=== PATIENT | female | born 2000 | race Caucasian/White ===

== ENCOUNTER 2020-08-01 15:18 | Emergency (ER) | payer BC, OTHER ==
--- NOTE | 2020-08-01 15:30 | ED Cardiac General ---
History of Present Illness General Chief Complaint: Chest Pain Stated Complaint: CHEST PAIN,SOB Source: patient Exam Limitations: no limitations History of Present Illness Date Seen by Provider: Aug 01, 2020 Time Seen by Provider: 15:27 Initial Comments 19-year-old female presents with "chest pain" and shortness of breath. Patient reports she's had slight palpitations or issues with her heart for a long time. That her family thinks she has anxiety. She reports that her symptoms started around 12 or 12:30. She denies any cough, fever, nausea, vomiting, underlying lung disease, smoking or other systemic complaints. She reports she has severe acid reflux that takes omeprazole for the doesn't help. Patient reports that because she thinks she has heart problem she wanted to come in and have it checked out. pt reports she has recently wore a holter monitor due to palpitations but does not have the results Allergies and Home Medications Allergies Coded Allergies: amoxicillin (Verified Allergy, Unknown, rash, 08/01/20) Patient Home Medication List Home Medication List Reviewed: Yes Review of Systems Review of Systems Constitutional: No chills, No fever, No weakness EENTM: No Symptoms Reported Respiratory: See HPI; Denies Cough Cardiovascular: See HPI Gastrointestinal: See HPI Genitourinary: No Symptoms Reported Musculoskeletal: no symptoms reported Skin: no symptoms reported Psychiatric/Neurological: No Symptoms Reported Endocrine: No Symptoms Reported Past Zukgmle-Xdodxz-Objhre Hx Past Med/Social Hx: Reviewed Nursing Past Med/Soc Hx Physical Exam Vital Signs Vital Signs - First Documented 08/01/20 15:25 Temp 36.5 Pulse 101 Resp 16 B/P (MAP) 144/87 (106) Pulse Ox 97 Capillary Refill : Height, Weight, BMI Height: '" Weight: lbs. oz. kg; BMI Method: General Appearance: Anxious Neck: Full Range of Motion, Supple Respiratory: Lungs Clear, Normal Breath Sounds, No Accessory Muscle Use, No Respiratory Distress Cardiovascular: Regular Rate, Rhythm, No Edema Gastrointestinal: Non Tender, Soft Extremity: Normal Capillary Refill, Normal Inspection, Normal Range of Motion, No Calf Tenderness Neurologic/Psychiatric: Alert, Oriented x3, board member II-XII Norm as Tested, Other (anxious) Skin: Normal Color, Warm/Dry Progress/Results/Core Measures Results/Orders Lab Results Laboratory Tests Test 08/01/20 15:30 Range/Units White Blood Count 10.9 4.3-11.0 10^3/uL Red Blood Count 4.94 4.35-5.85 10^6/uL Hemoglobin 12.7 11.5-16.0 G/DL Hematocrit 37 35-52 % Mean Corpuscular Volume 75 L 80-99 FL Mean Corpuscular Hemoglobin 26 25-34 PG Mean Corpuscular Hemoglobin Concent 34 32-36 G/DL Red Cell Distribution Width 13.5 10.0-14.5 % Platelet Count 333 130-400 10^3/uL Mean Platelet Volume 11.3 H 7.4-10.4 FL Neutrophils (%) (Auto) 76 H 42-75 % Lymphocytes (%) (Auto) 17 12-44 % Monocytes (%) (Auto) 5 0-12 % Eosinophils (%) (Auto) 2 0-10 % Basophils (%) (Auto) 1 0-10 % Neutrophils # (Auto) 8.3 H 1.8-7.8 X 10^3 Lymphocytes # (Auto) 1.9 1.0-4.0 X 10^3 Monocytes # (Auto) 0.5 0.0-1.0 X 10^3 Eosinophils # (Auto) 0.2 0.0-0.3 10^3/uL Basophils # (Auto) 0.1 0.0-0.1 10^3/uL D-Dimer 0.44 0.00-0.49 UG/ML Sodium Level 140 135-145 MMOL/L Potassium Level 4.0 3.6-5.0 MMOL/L Chloride Level 105 98-107 MMOL/L Carbon Dioxide Level 23 21-32 MMOL/L Anion Gap 12 5-14 MMOL/L Blood Urea Nitrogen 12 7-18 MG/DL Creatinine 0.68 0.60-1.30 MG/DL Estimat Glomerular Filtration Rate > 60 BUN/Creatinine Ratio 18 Glucose Level 135 H 70-105 MG/DL Calcium Level 9.2 8.5-10.1 MG/DL Corrected Calcium 9.1 8.5-10.1 MG/DL Total Bilirubin 0.6 0.1-1.0 MG/DL Aspartate Amino Transf (AST/SGOT) 17 5-34 U/L Alanine Aminotransferase (ALT/SGPT) 11 0-55 U/L Alkaline Phosphatase 124 40-136 U/L Troponin I < 0.30 <0.30 NG/ML C-Reactive Protein 0.92 H <0.50 MG/DL Pro-B-Type Natriuretic Peptide 38.2 <75.0 PG/ML Total Protein 7.8 6.4-8.2 GM/DL Albumin 4.1 3.2-4.5 GM/DL Lipase 26 8-78 U/L My Orders Orders - PALMER MARES DO Ed Iv/Invasive Line Start (08/01/20 15:30) Ekg Tracing (08/01/20 15:30) Monitor-Rhythm Ecg Trace Only (08/01/20 15:30) Cbc With Automated Diff (08/01/20 15:30) Comprehensive Metabolic Panel (08/01/20 15:30) Fibrin Degradation Products (08/01/20 15:30) Lipase (08/01/20 15:30) Thyroid Stimulating Hormone (08/01/20 15:30) Probnp Fs (08/01/20 15:30) Crp Fs (08/01/20 15:30) Troponin I Fs (08/01/20 15:30) Pantoprazole Injection (Protonix Injecti (08/01/20 15:45) Medications Given in ED Current Medications Medications Dose Ordered Sig/Silver Route Start Time Stop Time Status Last Admin Dose Admin Pantoprazole 40 mg ONCE ONCE IV 08/01/20 15:45 08/01/20 15:46 DC 08/01/20 15:44 40 MG Vital Signs/I&O 08/01/20 15:25 Temp 36.5 Pulse 101 Resp 16 B/P (MAP) 144/87 (106) Pulse Ox 97 Progress Progress Note : Time: 16:24 Progress Note Patient with stable vital signs throughout her ER stay with heart rate in the 80s oxygen in the upper 90s. Patient with Skamh-Icnioacty-Ugoab on EKG. I did discuss with Dr. Hunter who will see patient on an outpatient basis with no need for medication prior to her outpatient visit. Patient is stable. I did discuss the need to follow-up with cardiology which she voices understanding. Patient did decline an x-ray due to cost. Patient is discharged home. Initial ECG Impression Date: Aug 01, 2020 Initial ECG Impression Time: 15:35 Initial ECG Rate: 90 Initial ECG Rhythm: Normal Sinus Comment WPW Departure Impression Primary Impression: Inocente Parkinson White pattern seen on electrocardiogram Disposition: HOME, SELF-CARE Condition: Stable Departure-Patient Inst. Referrals: NOE WELLER MD Call Monday for an appointment time Patient Instructions: Rwsfz-Zdzziqjip-Tnpqq Syndrome Add. Discharge Instructions: Please call the cardiology office Monday at [facility] for an appointment time. All discharge instructions reviewed with patient and/or family. Voiced understanding. Copy Copies To 1: NOE WELLER MD, TREVOR L DO Aug 01, 2020 15:29
[2020-08-01 15:41] LABS: EOSINOPHILS % (AUTO) 2 % (0-10); HEMATOCRIT 37 % (35-52); HEMOGLOBIN 12.7 G/DL (11.5-16.0); LYMPHOCYTES % (AUTO) 17 % (12-44); MEAN CORPUSCULAR HEMOGLOBIN 26 PG (25-34); MEAN CORPUSCULAR HGB CONC 34 G/DL (32-36); MEAN CORPUSCULAR VOLUME 75 FL (80-99); MEAN PLATELET VOLUME 11.3 FL (7.4-10.4); MONOCYTES % (AUTO) 5 % (0-12); NEUTROPHILS % (AUTO) 76 % (42-75); PLATELET COUNT 333 10^3/uL (130-400); WHITE BLOOD COUNT 10.9 10^3/uL (4.3-11.0)
[2020-08-01 15:42] LABS: BASOPHILS # (AUTO) 0.1 10^3/uL (0.0-0.1); BASOPHILS % (AUTO) 1 % (0-10); EOSINOPHILS # (AUTO) 0.2 10^3/uL (0.0-0.3); LYMPHOCYTES # (AUTO) 1.9 X 10^3 (1.0-4.0); MONOCYTES # (AUTO) 0.5 X 10^3 (0.0-1.0); NEUTROPHILS # (AUTO) 8.3 X 10^3 (1.8-7.8)
[2020-08-01] MEDS ORDERED: PANTOPRAZOLE 40 MG (PROTONIX) VIAL IV ONE (15:45)
[2020-08-01 16:13] LABS: ALANINE AMINOTRANSFERASE 11 U/L (0-55); ALKALINE PHOSPHATASE 124 U/L (40-136); BILIRUBIN,TOTAL 0.6 MG/DL (0.1-1.0); BUN/CREATININE RATIO 18; CALCIUM 9.2 MG/DL (8.5-10.1); CARBON DIOXIDE 23 MMOL/L (21-32); CHLORIDE 105 MMOL/L (98-107); CREATININE SERUM 0.68 MG/DL (0.60-1.30); GFR ESTIMATED > 60; GLUCOSE 135 MG/DL (70-105); SODIUM 140 MMOL/L (135-145)
[2020-08-01 16:14] LABS: ALBUMIN 4.1 GM/DL (3.2-4.5); LIPASE 26 U/L (8-78); TOTAL PROTEIN 7.8 GM/DL (6.4-8.2)
[2020-08-01 16:34] VITALS: BP 114/87
== END 2020-08-01 16:35 | disposition home or self-care (01) ==
LOC: ER FS 15:20
DX: I45.6 Pre-excitation syndrome (principal); F41.9 Anxiety disorder, unspecified; Z88.1 Allergy status to other antibiotic agents
CPT/HCPCS: 36415; 80053; 83690; 83880; 84443; 84484; 85025; 85379; 86141; 93041

== ENCOUNTER 2021-02-23 16:18 | Emergency (ER) | payer BC ==
[~2021-02-23] VITALS: Ht 149.9 cm; Wt 74.8 kg
[2021-02-23 16:21] VITALS: BP 142/83
--- NOTE | 2021-02-23 16:35 | ED Cardiac General ---
History of Present Illness General Chief Complaint: Cardiac/General Problems Stated Complaint: ABNORMAL HEART RATE Nursing Triage Note: Patient reports she had an episode two days ago when she "felt her heartbeat beating really hard", states she was shaking. She states she sat down and did deep breathing and was able to resolve the feeling within 30 seconds. History of Present Illness Date Seen by Provider: Feb 23, 2021 Time Seen by Provider: 16:30 Initial Comments 20-year-old female presents 2 days after having an episode of an irregular heartbeat that resolved within 30 seconds. History of similar "palpitations" in the past. She is on no medication for her heart and has been seen by her primary care provider for the same. Presents asymptomatic, denies chest pain, rapid heartbeat, palpitations or shortness of air. Patient states I promised my family I would get checked out. She initially went to the urgent care and was referred to the emergency room because her condition was heart related. Allergies and Home Medications Allergies Coded Allergies: amoxicillin (Verified Allergy, Unknown, rash, 08/01/20) Patient Home Medication List Home Medication List Reviewed: Yes Review of Systems Review of Systems Constitutional: No dizziness, No fever, No malaise, No weakness EENTM: No Symptoms Reported Respiratory: Denies Cough, Denies Orthopnea, Denies Shortness of Air, Denies Stridor, Denies Wheezing Cardiovascular: See HPI; Denies Chest Pain, Denies Edema, Denies Lightheadedness; Palpitations (2 days ago, resolved); Denies Syncope Gastrointestinal: No Symptoms Reported Musculoskeletal: no symptoms reported Past Enoqylz-Fbekdc-Oahsdn Hx Past Med/Social Hx: Reviewed Nursing Past Med/Soc Hx Patient Social History Alcohol Use: Denies Use Smoking Status: Never a Smoker 2nd Hand Smoke Exposure: No Recent Infectious Disease Expo: No Recent Hopitalizations: No Seasonal Allergies Seasonal Allergies: No Past Medical History Surgeries: Yes (baja implant) Gallbladder Respiratory: No Cardiac: No Neurological: No Genitourinary: No Gastrointestinal: Yes Gastroesophageal Reflux Musculoskeletal: No Endocrine: No HEENT: No Cancer: No Psychosocial: Yes Anxiety Integumentary: No Physical Exam Vital Signs Vital Signs - First Documented 02/23/21 16:21 Temp 36.6 Pulse 88 Resp 14 B/P (MAP) 142/83 (102) Pulse Ox 97 O2 Delivery Room Air Capillary Refill : Less Than 3 Seconds Height, Weight, BMI Height: '" Weight: lbs. oz. kg; 33.00 BMI Method: General Appearance: No Apparent Distress, WD/WN Respiratory: Chest Non Tender, Lungs Clear, Normal Breath Sounds, No Accessory Muscle Use, No Respiratory Distress Cardiovascular: Regular Rate, Rhythm, No Edema, No Gallop, No JVD, No Murmur, Normal Peripheral Pulses Gastrointestinal: Non Tender, Soft Extremity: Normal Capillary Refill, Normal Inspection, Non Tender, No Calf Tenderness Neurologic/Psychiatric: Alert, Oriented x3 Progress/Results/Core Measures Results/Orders Vital Signs/I&O 02/23/21 16:21 Temp 36.6 Pulse 88 Resp 14 B/P (MAP) 142/83 (102) Pulse Ox 97 O2 Delivery Room Air Blood Pressure Mean: 102 Initial ECG Impression Date: Feb 23, 2021 Initial ECG Impression Time: 16:30 Initial ECG Rate: 74 Initial ECG Rhythm: Normal Sinus Initial ECG Intervals: KS (shortened) Initial ECG Comparisson: No Previous ECG Available Comment possible WPW early repol Departure Impression Primary Impression: Palpitations Disposition: 01 HOME, SELF-CARE Condition: Stable Departure-Patient Inst. Decision time for Depature: 16:34 Referrals: DANIA MACDONALD (PCP) Primary Care Physician NO,LOCAL PHYSICIAN (Family) Primary Care Physician Patient Instructions: Palpitations (DC) Add. Discharge Instructions: Follow up with your PCP regarding your episodes of heart palpitations All discharge instructions reviewed with patient and/or family. Voiced understanding. URIEL TAYLOR DO Feb 23, 2021 16:35
== END 2021-02-23 16:38 | disposition home or self-care (01) ==
LOC: EDUNIT# 16:18 → ER FS 16:19
DX: R00.2 Palpitations (principal); I10 Essential (primary) hypertension; Z88.1 Allergy status to other antibiotic agents
CPT/HCPCS: 93005

== ENCOUNTER 2022-02-01 22:30 | Emergency (ER) | payer BC ==
[~2022-02-01] VITALS: Ht 149 cm; Wt 81.0 kg
[2022-02-01 22:40] VITALS: BP 138/86
[2022-02-01 23:18] LABS: BASOPHILS # (AUTO) 0.1 10^3/uL (0.0-0.1); BASOPHILS % (AUTO) 0 % (0-10); EOSINOPHILS # (AUTO) 0.5 10^3/uL (0.0-0.3); EOSINOPHILS % (AUTO) 4 % (0-10); HEMATOCRIT 38 % (35-52); HEMOGLOBIN 12.4 g/dL (11.5-16.0); LYMPHOCYTES # (AUTO) 2.5 10^3/uL (1.0-4.0); LYMPHOCYTES % (AUTO) 21 % (12-44); MEAN CORPUSCULAR HEMOGLOBIN 23 pg (25-34); MEAN CORPUSCULAR HGB CONC 33 g/dL (32-36); MEAN CORPUSCULAR VOLUME 71 fL (80-99); MEAN PLATELET VOLUME 10.5 fL (9.0-12.2); MONOCYTES # (AUTO) 0.9 10^3/uL (0.0-1.0); MONOCYTES % (AUTO) 7 % (0-12); NEUTROPHILS # (AUTO) 8.3 10^3/uL (1.8-7.8); NEUTROPHILS % (AUTO) 68 % (42-75); PLATELET COUNT 389 10^3/uL (130-400); WHITE BLOOD COUNT 12.3 10^3/uL (4.3-11.0)
[2022-02-01 23:21] LABS: AMPHETAMINE SCREEN, URINE NEGATIVE (NEGATIVE); BARBITURATE SCREEN URINE NEGATIVE (NEGATIVE); BENZODIAZEPINES SCREEN URINE NEGATIVE (NEGATIVE); CANNABINOID SCREEN, URINE NEGATIVE (NEGATIVE); COCAINE SCREEN URINE NEGATIVE (NEGATIVE); METHADONE STAT NEGATIVE (NEGATIVE); METHAMPHETAMINE SCREEN URINE S NEGATIVE (NEGATIVE); OPIATE SCREEN URINE NEGATIVE (NEGATIVE); OXYCODONE STAT NEGATIVE (NEGATIVE); PROPOXYPHENE STAT NEGATIVE (NEGATIVE); TRICYCLIC ANTIDEPRESSANTS SCRE NEGATIVE (NEGATIVE)
[2022-02-01 23:40] LABS: CARBON DIOXIDE 22 MMOL/L (21-32); CHLORIDE 101 MMOL/L (98-107); POTASSIUM 3.9 MMOL/L (3.6-5.0); SODIUM 138 MMOL/L (135-145)
[2022-02-01 23:41] LABS: ALANINE AMINOTRANSFERASE 12 U/L (0-55); ALKALINE PHOSPHATASE 137 U/L (40-136); BILIRUBIN,TOTAL 0.3 MG/DL (0.1-1.0); BUN/CREATININE RATIO 18; CALCIUM 9.1 MG/DL (8.5-10.1); CREATININE SERUM 0.61 MG/DL (0.60-1.30); GFR ESTIMATED 130; GLUCOSE 118 MG/DL (70-105); TOTAL PROTEIN 7.7 GM/DL (6.4-8.2)
--- NOTE | 2022-02-02 02:29 | ED Psychosocial ---
General Chief Complaint: Psych/Social Disorder Stated Complaint: MENTAL HEALTH SCREENING Nursing Triage Note: PT PRESENTS WITH PARENT. PATIENT REPORTS FOR THE LAST WEEK HAVING HI. REPORTS NO ONE SPECIFIC BUT HAVING THE THOUGHTS TO STRIKE SOMEONE WITH A HEAVY OBJECT. DENIES CURRENT SI. Source: patient, family Exam Limitations: no limitations History of Present Illness Date Seen by Provider: Feb 01, 2022 Time Seen by Provider: 22:35 Initial Comments Patient is a 21-year-old female who presents with hallucinating auditory and visual hallucinations with thoughts of harming others. Patient states she has the urge to hit random people with a heavy object in order to inflict pain. She denies specific target. She denies suicidal ideation,. She reports some paranoid delusions. She is currently on vacation. No fevers chills, nausea vomiting or sweats. No other acute symptoms or complaints Timing/Duration: just prior to arrival Severity: mild Associated Symptoms: denies symptoms Allergies and Home Medications Allergies Coded Allergies: amoxicillin (Verified Allergy, Unknown, rash, 08/01/20) Patient Home Medication List Home Medication List Reviewed: Yes Review of Systems Constitutional: see HPI EENTM: see HPI Respiratory: see HPI Cardiovascular: see HPI Gastrointestinal: see HPI Genitourinary: see HPI : No Musculoskeletal: see HPI Skin: see HPI Psychiatric/Neurological: See HPI All Other Systems Reviewed Negative Unless Noted: Yes Past Qayyqoa-Cltcjn-Cnabpj Hx Patient Social History Tobacco Use?: No Substance use?: No Alcohol Use?: No Pt feels they are or have been: No Immunizations Up To Date Influenza Vaccine Up-to-Date: No; Not Current First/Initial COVID19 Vaccinat: UNKNOWN DATE Second COVID19 Vaccination Andrews: UNKNOWN DATE Seasonal Allergies Seasonal Allergies: No Past Medical History Surgeries: Yes (baja implant) Gallbladder Respiratory: No Cardiac: No Neurological: No Last Menstrual Period: Jan 04, 2022 Genitourinary: No Gastrointestinal: Yes Gastroesophageal Reflux Musculoskeletal: No Endocrine: No HEENT: No Cancer: No Psychosocial: Yes Anxiety Integumentary: No Physical Exam Vital Signs - First Documented 02/01/22 22:40 Temp 36.0 Pulse 101 Resp 20 B/P (MAP) 138/86 (103) Pulse Ox 97 O2 Delivery Room Air Capillary Refill : Height, Weight, BMI Height: '" Weight: lbs. oz. kg; 36.00 BMI Method: General Appearance: WD/WN, no apparent distress HEENT: PERRL/EOMI Respiratory: normal breath sounds Cardiovascular: regular rate, rhythm Neurologic/Psychiatric: vehicle leasing and rental manager II-XII nml as tested, no motor/sensory deficits, alert Appearance/Memory: no memory impairment Behavior/Eye Contact: cooperative, good eye contact Thoughts/Hallucinations: other (Thoughts of harming strangers) Progress/Results/Core Measures Results/Orders Lab Results Laboratory Tests Test 02/01/22 23:00 02/01/22 23:13 Range/Units Urine Opiates Screen NEGATIVE NEGATIVE Urine Oxycodone Screen NEGATIVE NEGATIVE Urine Methadone Screen NEGATIVE NEGATIVE Urine Propoxyphene Screen NEGATIVE NEGATIVE Urine Barbiturates Screen NEGATIVE NEGATIVE Ur Tricyclic Antidepressants Screen NEGATIVE NEGATIVE Urine Phencyclidine Screen NEGATIVE NEGATIVE Urine Amphetamines Screen NEGATIVE NEGATIVE Urine Methamphetamines Screen NEGATIVE NEGATIVE Urine Benzodiazepines Screen NEGATIVE NEGATIVE Urine Cocaine Screen NEGATIVE NEGATIVE Urine Cannabinoids Screen NEGATIVE NEGATIVE White Blood Count 12.3 H 4.3-11.0 10^3/uL Red Blood Count 5.33 H 3.80-5.11 10^6/uL Hemoglobin 12.4 11.5-16.0 g/dL Hematocrit 38 35-52 % Mean Corpuscular Volume 71 L 80-99 fL Mean Corpuscular Hemoglobin 23 L 25-34 pg Mean Corpuscular Hemoglobin Concent 33 32-36 g/dL Red Cell Distribution Width 15.9 H 10.0-14.5 % Platelet Count 389 130-400 10^3/uL Mean Platelet Volume 10.5 9.0-12.2 fL Immature Granulocyte % (Auto) 0 % Neutrophils (%) (Auto) 68 42-75 % Lymphocytes (%) (Auto) 21 12-44 % Monocytes (%) (Auto) 7 0-12 % Eosinophils (%) (Auto) 4 0-10 % Basophils (%) (Auto) 0 0-10 % Neutrophils # (Auto) 8.3 H 1.8-7.8 10^3/uL Lymphocytes # (Auto) 2.5 1.0-4.0 10^3/uL Monocytes # (Auto) 0.9 0.0-1.0 10^3/uL Eosinophils # (Auto) 0.5 H 0.0-0.3 10^3/uL Basophils # (Auto) 0.1 0.0-0.1 10^3/uL Immature Granulocyte # (Auto) 0.0 0.0-0.1 10^3/uL Sodium Level 138 135-145 MMOL/L Potassium Level 3.9 3.6-5.0 MMOL/L Chloride Level 101 98-107 MMOL/L Carbon Dioxide Level 22 21-32 MMOL/L Anion Gap 15 H 5-14 MMOL/L Blood Urea Nitrogen 11 7-18 MG/DL Creatinine 0.61 0.60-1.30 MG/DL Estimat Glomerular Filtration Rate 130 BUN/Creatinine Ratio 18 Glucose Level 118 H 70-105 MG/DL Calcium Level 9.1 8.5-10.1 MG/DL Corrected Calcium 9.1 8.5-10.1 MG/DL Total Bilirubin 0.3 0.1-1.0 MG/DL Aspartate Amino Transf (AST/SGOT) 17 5-34 U/L Alanine Aminotransferase (ALT/SGPT) 12 0-55 U/L Alkaline Phosphatase 137 H 40-136 U/L Total Protein 7.7 6.4-8.2 GM/DL Albumin 4.0 3.2-4.5 GM/DL Serum Alcohol < 10 <10 MG/DL My Orders Orders - REMY MARSHALL DO Cbc With Automated Diff (02/01/22 22:47) Comprehensive Metabolic Panel (02/01/22 22:47) Drug Screen Stat (Urine) (02/01/22 22:47) Ekg Tracing (02/01/22 22:47) Alcohol (02/01/22 22:47) Urine Bedside (02/01/22 22:48) Vital Signs/I&O 02/01/22 22:40 Temp 36.0 Pulse 101 Resp 20 B/P (MAP) 138/86 (103) Pulse Ox 97 O2 Delivery Room Air Blood Pressure Mean: 103 Departure Communication (Admissions) EKG: Sinus rhythm, rate 87, no acute ST-T wave changes. Patient medically stable, psychiatric screening scan completed. Recommendations are home safety plan with counselor follow-up. I am comfortable with this plan. Return precautions reviewed prior to departure Impression Primary Impression: Mood disorder Disposition: 01 HOME, SELF-CARE Condition: Stable Departure-Patient Inst. Decision time for Depature: 02:28 Referrals: DANIA MACDONALD (PCP/Family) Primary Care Physician Add. Discharge Instructions: Please follow the instructions provided to you in the home safety plan and follow-up with your therapist as scheduled. Return to the ED if new or worsening symptoms. All discharge instructions reviewed with patient and/or family. Voiced understanding. REMY MARSHALL DO Feb 02, 2022 02:29
== END 2022-02-02 02:36 | disposition home or self-care (01) ==
LOC: EDUNIT# 22:30 → ER FS 22:31
DX: F39 Unspecified mood [affective] disorder (principal)
CPT/HCPCS: 36415; 80053; 80306; 84703; 85025; 93005; 99283; G0480; 80320